=== PATIENT | female | born 1955 | race Hispanic/Latino ===

== ENCOUNTER 2019-10-29 05:43 | Day surgery (SDC) | payer OTHER ==
[2019-10-29] MEDS ORDERED: TROP 1%/CYCLOPEN 1%/PHENYL 2% DROPS ONE (06:34)
[2019-10-29] MEDS ORDERED: PROPARACAINE 0.5% OPHTH SOL 15 ML BTTL ONE (06:34)
[2019-10-29] MEDS ORDERED: MOXIFLOXACIN HCL (OPHTH) 1 DROP DROPS ONE (06:34)
[2019-10-29] MEDS ORDERED: MIDAZOLAM INJ 2 MG/2 ML VIAL ONE (10:57)
[2019-10-29] MEDS ORDERED: LIDOCAINE 1% 2 ML VIAL INJ ONE (11:00)
[2019-10-29] MEDS ORDERED: DEXAMETHASONE 0.1% OPHTH SOL 1 DROP LEFT_EYE ONE (11:00)
[2019-10-29] MEDS ORDERED: PROPARACAINE 0.5% OPHTH SOL 15 ML BTTL LEFT_EYE ONE (11:00)
[2019-10-29] MEDS ORDERED: MOXIFLOXACIN HCL (OPHTH) 1 DROP DROPS LEFT_EYE ONE (11:00)
[2019-10-29] MEDS ORDERED: BRIMONIDINE 0.2% OPHTH DROPS LEFT_EYE ONE (11:00)
[2019-10-29] MEDS ORDERED: TOBRAMYCIN SULF 0.3 % OPHT SOL 1 DROP LEFT_EYE ONE (11:00)
== END 2019-10-29 12:07 | disposition home or self-care (01) ==
LOC: AMB 05:43
PROVIDERS: ATTEND Ophthalmology
DX: E11.36 Type 2 diabetes mellitus with diabetic cataract (principal); H25.12 Age-related nuclear cataract, left eye; I10 Essential (primary) hypertension; Z79.899 Other long term (current) drug therapy
CPT/HCPCS: 00142; 36416; 66984; 82948; J2250